=== PATIENT | female | born 1965 | race Hispanic/Latino ===

== ENCOUNTER 2017-09-11 00:06 | Emergency (ER) | payer OTHER ==
[~2017-09-11 00:06] MED LIST: ASPI-1197 PO; INSU10VI4 SQ; LOSA25TA21 PO; MIRA25TA PO; PANT40TA25 PO
[2017-09-11 01:00] LABS: BASOPHILS % (AUTO) 0.8 % (0.0-5.0); EOSINOPHILS % (AUTO) 3.2 % (0.0-8.0); HEMATOCRIT 33.7 % (36-48); LYMPHOCYTES % (AUTO) 40.2 % (21.0-51.0); MEAN CORPUSCULAR HEMOGLOBIN 29.1 pg (27.0-33.0); MEAN CORPUSCULAR HGB CONC 33.8 g/dL (32.0-36.0); MONOCYTES % (AUTO) 8.8 % (3.0-13.0); NUCLEATED RED BLOOD CELLS 0.1 % (0.0-0.19); PLATELET COUNT (AUTO) 95 K/uL (130-400); RED BLOOD CELL COUNT(AUTO) 3.92 MIL/uL (4.00-5.50); RED CELL DISTRIBUTION WIDTH 15.1 % (11.0-15.5); WHITE BLOOD COUNT (AUTO) 3.7 K/uL (4.8-10.8)
[2017-09-11 01:11] LABS: CREATININE 0.7 mg/dL (0.5-1.5); POTASSIUM 3.7 mmol/L (3.5-5.1)
[2017-09-11 01:16] LABS: ALBUMIN 2.8 g/dL (3.5-5.0); BILIRUBIN,TOTAL 0.4 mg/dL (0.2-1.0); TOTAL PROTEIN, SERUM 6.5 g/dL (6.0-8.3)
[2017-09-11] MEDS ORDERED: ONDANSETRON HCL 4 MG/2 ML VIAL ONE (01:26)
[2017-09-11] MEDS ORDERED: SODIUM CHLORIDE 0.9% 1000ML 1,000 ML IV ONE (01:26)
[2017-09-11] MEDS ORDERED: MORPHINE SULFATE 8 MG/ML VIAL ONE ×2 (01:27→03:36)
[2017-09-11] MEDS ORDERED: INSULIN HUMULIN R 100 UNIT/ML 3ML ONE (01:28)
[2017-09-11 02:09] LABS: APPEARANCE,URINE Clear (CLEAR); BILIRUBIN,URINE Negative (NEGATIVE); COLOR,URINE Yellow (YELLOW); GLUCOSE, URINE (UA) >=1000 mg/dL (NEGATIVE); KETONES,URINE Negative (NEGATIVE); LEUKOCYTE ESTERASE ,URINE Negative (NEGATIVE); NITRATE,URINE Negative (NEGATIVE); OCCULT BLOOD,URINE Negative (NEGATIVE); PH,URINE 6.5 (5.0-8.0); PROTEIN,URINE Negative (NEGATIVE)
[2017-09-11] MEDS ORDERED: IOPAMIDOL-370 75 ML VIAL IV ONE (02:09)
[2017-09-11 02:39] LABS: BACTERIA,URINE Rare /HPF (None Seen); SQUAMOUS EPITHELIAL CELL,UR 0-2 /LPF (0-2); WBC,URINE 0-1 /HPF (0-1)
== END 2017-09-11 04:29 | disposition home or self-care (01) ==
LOC: EDH 00:06
DX: K43.9 Ventral hernia without obstruction or gangrene (principal); K74.69 Other cirrhosis of liver; E11.9 Type 2 diabetes mellitus without complications; F32.9 Major depressive disorder, single episode, unspecified; R01.1 Cardiac murmur, unspecified; Z98.51 Tubal ligation status; Z90.49 Acquired absence of other specified parts of digestive tract; Z72.0 Tobacco use
CPT/HCPCS: 36415; 74177; 80053; 81001; 82550; 82948; 83690; 84484; 85025; 93005; 96361; 96374; 96375; 96376; 99285; J1815; J2270 ×2; J2405; J7030; Q9967

== ENCOUNTER 2017-09-25 15:37 | Emergency (ER) | payer OTHER ==
[2017-09-25 16:45] LABS: EOSINOPHILS % (AUTO) 3.3 % (0.0-8.0); HEMATOCRIT 35.5 % (36-48); LYMPHOCYTES % (AUTO) 33.3 % (21.0-51.0); MEAN CORPUSCULAR HEMOGLOBIN 28.6 pg (27.0-33.0); MEAN CORPUSCULAR HGB CONC 33.6 g/dL (32.0-36.0); MEAN CORPUSCULAR VOLUME 85.2 fL (79-99); MONOCYTES % (AUTO) 6.9 % (3.0-13.0); NEUTROPHILS % (AUTO) 55.5 % (40.0-77.0); PLATELET COUNT (AUTO) 99 K/uL (130-400); RED BLOOD CELL COUNT(AUTO) 4.16 MIL/uL (4.00-5.50); RED CELL DISTRIBUTION WIDTH 14.4 % (11.0-15.5); WHITE BLOOD COUNT (AUTO) 4.2 K/uL (4.8-10.8)
[2017-09-25] MEDS ORDERED: KETOROLAC TROMETHAMINE 30MG/ML ONE (16:46)
[2017-09-25] MEDS ORDERED: ONDANSETRON HCL 4 MG/2 ML VIAL ONE (16:46)
[2017-09-25 17:02] LABS: CREATININE 0.7 mg/dL (0.5-1.5)
[2017-09-25 17:06] LABS: ALBUMIN 2.8 g/dL (3.5-5.0); BILIRUBIN,TOTAL 0.6 mg/dL (0.2-1.0); TOTAL PROTEIN, SERUM 6.9 g/dL (6.0-8.3)
[2017-09-25 17:53] LABS: APPEARANCE,URINE Clear (CLEAR); BILIRUBIN,URINE Negative (NEGATIVE); COLOR,URINE Yellow (YELLOW); GLUCOSE, URINE (UA) >=1000 mg/dL (NEGATIVE); KETONES,URINE Negative (NEGATIVE); LEUKOCYTE ESTERASE ,URINE Negative (NEGATIVE); NITRATE,URINE Negative (NEGATIVE); OCCULT BLOOD,URINE Negative (NEGATIVE); PROTEIN,URINE Negative (NEGATIVE)
[2017-09-25 18:41] LABS: BACTERIA,URINE Rare /HPF (None Seen); RBC,URINE 0-1 /HPF (0-1); SQUAMOUS EPITHELIAL CELL,UR Rare /LPF (0-2); WBC,URINE 0-1 /HPF (0-1)
[2017-09-25] MEDS ORDERED: MORPHINE SULFATE 4 MG/1ML SYG ONE (20:19)
[2017-09-25] MEDS ORDERED: INSULIN HUMULIN R 100 UNIT/ML 3ML ONE (21:08)
== END 2017-09-25 21:28 | disposition home or self-care (01) ==
LOC: EDH 15:37
DX: G44.209 Tension-type headache, unspecified, not intractable (principal); K80.50 Calculus of bile duct without cholangitis or cholecystitis without obstruction; M54.12 Radiculopathy, cervical region; E11.9 Type 2 diabetes mellitus without complications; R01.1 Cardiac murmur, unspecified; Z98.51 Tubal ligation status; Z90.49 Acquired absence of other specified parts of digestive tract
CPT/HCPCS: 36415; 70450; 71045; 80053; 81001; 82948; 83690; 84484; 85025; 93005; 96374; 96375; 99285; J1815; J1885; J2270; J2405

== ENCOUNTER 2018-07-04 22:03 | Inpatient (IN) | payer OTHER ==
[~2018-07-04] VITALS: Ht 167.6 cm; Wt 127.5 kg
[~2018-07-04 22:03] MED LIST changes: +INSU100V33 SQ; -INSU10VI4 SQ; +LOSA25TA16 PO; -LOSA25TA21 PO
[2018-07-04 23:14] LABS: BASOPHILS % (AUTO) 1.2 % (0.0-5.0); EOSINOPHILS % (AUTO) 3.1 % (0.0-8.0); HEMATOCRIT 34.9 % (36-48); LYMPHOCYTES % (AUTO) 28.7 % (21.0-51.0); MEAN CORPUSCULAR HEMOGLOBIN 28.9 pg (27.0-33.0); MEAN CORPUSCULAR HGB CONC 33.4 g/dL (32.0-36.0); MEAN CORPUSCULAR VOLUME 86.5 fL (79-99); MONOCYTES % (AUTO) 8.5 % (3.0-13.0); NEUTROPHILS % (AUTO) 58.5 % (40.0-77.0); PLATELET COUNT (AUTO) 77 K/uL (130-400); RED BLOOD CELL COUNT(AUTO) 4.04 MIL/uL (4.00-5.50); RED CELL DISTRIBUTION WIDTH 15.2 % (11.0-15.5); WHITE BLOOD COUNT (AUTO) 4.4 K/uL (4.8-10.8)
[2018-07-04] MEDS ORDERED: KETOROLAC TROMETHAMINE 30MG/ML ONE (23:17)
[2018-07-04 23:24] LABS: INR 1.12 (0.85-1.15); PARTIAL THROMBOPLASTIN TIME 29.2 SEC (26.3-35.5); PROTHROMBIN TIME 11.7 SEC (9.6-11.6)
[2018-07-04 23:28] LABS: CREATININE 0.7 mg/dL (0.5-1.5); POTASSIUM 3.9 mmol/L (3.5-5.1)
[2018-07-04 23:36] LABS: APPEARANCE,URINE Clear (CLEAR); BILIRUBIN,URINE Negative (NEGATIVE); COLOR,URINE Yellow (YELLOW); GLUCOSE, URINE (UA) TRACE mg/dL (NEGATIVE); KETONES,URINE Negative (NEGATIVE); LEUKOCYTE ESTERASE ,URINE Small (NEGATIVE); NITRATE,URINE Negative (NEGATIVE); OCCULT BLOOD,URINE Negative (NEGATIVE); PROTEIN,URINE Negative (NEGATIVE)
[2018-07-04 23:37] LABS: ALBUMIN 2.6 g/dL (3.5-5.0); BILIRUBIN,TOTAL 0.6 mg/dL (0.2-1.0); TOTAL PROTEIN, SERUM 7.1 g/dL (6.0-8.3)
[2018-07-04 23:38] LABS: AMYLASE 42 U/L (25-115)
[2018-07-04 23:43] LABS: AMPHET/METH SCREEN,URINE NEGATIVE (NEGATIVE); BARBITURATE SCREEN, URINE NEGATIVE (NEGATIVE); BENZODIAZEPINES SCREEN,URINE NEGATIVE (NEGATIVE); CANNABINOID SCREEN,URINE NEGATIVE (NEGATIVE); COCAINE SCREEN,URINE NEGATIVE (NEGATIVE); OPIATE SCREEN,URINE NEGATIVE (NEGATIVE); PHENCYCLIDINE SCREEN,URINE NEGATIVE (NEGATIVE)
[2018-07-04 23:46] LABS: BACTERIA,URINE Few /HPF (None Seen); MUCUS,URINE Rare LPF (None Seen); RBC,URINE 0-1 /HPF (0-1)
[2018-07-04 23:57] LABS: CREATINE KINASE, TOTAL 72 U/L (21-232)
[2018-07-05] MEDS ORDERED: MORPHINE SULFATE 4 MG/1ML SYG ONE ×5 (00:55→16:47)
[2018-07-05] MEDS ORDERED: ONDANSETRON HCL MDV 20ML 2 MG/ML VIAL ONE ×4 (00:55→16:47)
[2018-07-05] MEDS ORDERED: LEVOFLOXACIN 500 MG/D5W 100 ML 100 ML ONE (00:55)
[2018-07-05] MEDS ORDERED: CEFTRIAXONE SODIUM 1 GM IV SCH (01:15)
[2018-07-05] MEDS ORDERED: ONDANSETRON HCL 4 MG/2 ML VIAL IV PRN (01:15)
[2018-07-05] MEDS ORDERED: ACETAMINOPHEN 325 MG TAB PO PRN (01:15)
[2018-07-05] MEDS: CEFTRIAXONE SODIUM 1 GM IVP SCH (01:30)
[2018-07-05] MEDS ORDERED: CEFTRIAXONE SODIUM 1 GM ONE (04:06)
[2018-07-05] MEDS ORDERED: SODIUM CHLORIDE 0.9% 1000ML 1,000 ML IV ONE ×2 (04:06→14:46)
[2018-07-05] MEDS ORDERED: ENOXAPARIN SODIUM 30 MG/0.3 ML SQ ONE (08:16)
[2018-07-05] MEDS: ENOXAPARIN SODIUM 30 MG/0.3 ML SQ SCH ×2 (09:00→20:01)
[2018-07-05] MEDS: MIRABEGRON 25 MG PO SCH (09:00)
[2018-07-05 12:00] VITALS: BP 117/69
[2018-07-05] MEDS ORDERED: ALPR1TAB7 PO (12:11)
[2018-07-05] MEDS ORDERED: ECOTRIN PO (12:11)
[2018-07-05] MEDS ORDERED: LOSA100T20 PO (12:11)
[2018-07-05] MEDS ORDERED: METF-445 PO (12:11)
[2018-07-05] MEDS ORDERED: TRAM50TA4 PO (12:11)
[2018-07-05] MEDS ORDERED: ATOR10 PO (12:11)
[2018-07-05] MEDS ORDERED: INSU100I3 SQ (12:15)
[2018-07-05] MEDS ORDERED: INSU100V12 SQ ×2 (12:15)
[2018-07-05] MEDS ORDERED: PANT40TA25 PO (12:15)
[2018-07-05] MEDS ORDERED: KETOROLAC TROMETHAMINE 15MG/ML ONE (14:46)
[2018-07-05 19:00] VITALS: BP 126/73
[2018-07-05 19:02] VITALS: BP 116/67
[2018-07-05] MEDS: PANTOPRAZOLE SODIUM 40 MG TABLET.DR PO SCH (20:12)
[2018-07-05] MEDS: METRONIDAZOLE 500MG/100ML BAG 100 ML IV SCH (20:12)
[2018-07-05] MEDS: LOSARTAN 50 MG TABLET PO SCH (20:12)
[2018-07-05] MEDS: SODIUM CHLORIDE 0.9% 1000ML 1,000 ML IV SCH ×4 (20:14→21:16)
[2018-07-05] MEDS: KETOROLAC TROMETHAMINE 15MG/ML IV PRN (20:22)
[2018-07-05] MEDS ORDERED: LEVOFLOXACIN 500 MG/D5W 100 ML 100 ML IV SCH (22:00)
[2018-07-05] MEDS: MORPHINE SULFATE 4 MG/1ML SYG IV PRN (23:10)
[2018-07-06] VITALS (7 sets, daily range): BP systolic 110–149; BP diastolic 62–89
[2018-07-06] MEDS: CEFTRIAXONE SODIUM 1 GM IVP SCH (01:18)
[2018-07-06] MEDS: MORPHINE SULFATE 4 MG/1ML SYG IV PRN ×2 (02:38→08:29)
[2018-07-06] MEDS: METRONIDAZOLE 500MG/100ML BAG 100 ML IV SCH (04:07)
[2018-07-06] MEDS: SODIUM CHLORIDE 0.9% 1000ML 1,000 ML IV SCH ×2 (04:08→10:25)
[2018-07-06] MEDS: KETOROLAC TROMETHAMINE 15MG/ML IV PRN ×3 (04:08→20:54)
[2018-07-06 05:02] LABS: BASOPHILS % (AUTO) 0.4 % (0.0-5.0); EOSINOPHILS % (AUTO) 2.9 % (0.0-8.0); HEMATOCRIT 33.6 % (36-48); LYMPHOCYTES % (AUTO) 25.6 % (21.0-51.0); MEAN CORPUSCULAR HEMOGLOBIN 28.1 pg (27.0-33.0); MEAN CORPUSCULAR HGB CONC 32.3 g/dL (32.0-36.0); MEAN CORPUSCULAR VOLUME 86.9 fL (79-99); MONOCYTES % (AUTO) 8.6 % (3.0-13.0); NEUTROPHILS % (AUTO) 62.5 % (40.0-77.0); NUCLEATED RED BLOOD CELLS 0.1 % (0.0-0.19); PLATELET COUNT (AUTO) 68 K/uL (130-400); RED BLOOD CELL COUNT(AUTO) 3.87 MIL/uL (4.00-5.50); WHITE BLOOD COUNT (AUTO) 2.7 K/uL (4.8-10.8)
[2018-07-06 05:09] LABS: CREATININE 0.6 mg/dL (0.5-1.5); POTASSIUM 4.2 mmol/L (3.5-5.1)
[2018-07-06 05:27] LABS: BAND NEUTROPHILS % (MANUAL) 1 % (0-2); EOSINOPHILS % (MANUAL) 1 % (1-6); LYMPHOCYTES % (MANUAL) 33 % (22-44); MAN.DIFF COMMENT-IMPRESSION MANUAL DIFFERENTIAL; MONOCYTES % (MANUAL) 5 % (2-9); SEGMENTED NEUTROPHILS % 60 % (40-70)
[2018-07-06] MEDS: MIRABEGRON 25 MG PO SCH (08:10)
[2018-07-06] MEDS: ENOXAPARIN SODIUM 30 MG/0.3 ML SQ SCH (08:21)
[2018-07-06] MEDS: METRONIDAZOLE 500 MG TABLET PO SCH ×2 (11:35→18:01)
[2018-07-06] MEDS: LEVOFLOXACIN 500 MG TABLET PO SCH (11:35)
[2018-07-06] MEDS: LOSARTAN 50 MG TABLET PO SCH (20:53)
[2018-07-06] MEDS: PANTOPRAZOLE SODIUM 40 MG TABLET.DR PO SCH (20:53)
[2018-07-07] MEDS: CEFTRIAXONE SODIUM 1 GM IVP SCH (01:28)
[2018-07-07] MEDS: METRONIDAZOLE 500 MG TABLET PO SCH ×2 (03:17→11:15)
[2018-07-07 03:20] VITALS: BP 117/60
[2018-07-07] MEDS: SODIUM CHLORIDE 0.9% 1000ML 1,000 ML IV SCH (03:22)
[2018-07-07 07:00] VITALS: BP 146/84
[2018-07-07] MEDS ORDERED: METR500T4 PO (07:31)
[2018-07-07] MEDS ORDERED: LEVO500T2 PO (07:31)
[2018-07-07 11:00] VITALS: BP 154/100
[2018-07-07] MEDS: LEVOFLOXACIN 500 MG TABLET PO SCH (11:14)
[2018-07-07] MEDS: ENOXAPARIN SODIUM 30 MG/0.3 ML SQ SCH (11:26)
[2018-07-07] MEDS: KETOROLAC TROMETHAMINE 15MG/ML IV PRN (11:30)
== END 2018-07-07 15:38 | disposition home or self-care (01) | DRG 394 ==
LOC: EDH 22:03 → EDHIP 22:04 → OBSVTOIN 22:04 → 3CH 07-05 18:44
PROVIDERS: ADMIT Internal Medicine; ATTEND Internal Medicine
DX: K43.6 Other and unspecified ventral hernia with obstruction, without gangrene (principal); N39.0 Urinary tract infection, site not specified; Z68.42 Body mass index [BMI] 45.0-49.9, adult; K57.90 Diverticulosis of intestine, part unspecified, without perforation or abscess without bleeding; E66.01 Morbid (severe) obesity due to excess calories; D69.59 Other secondary thrombocytopenia; K74.60 Unspecified cirrhosis of liver; E11.9 Type 2 diabetes mellitus without complications; G89.29 Other chronic pain; I10 Essential (primary) hypertension; K21.9 Gastro-esophageal reflux disease without esophagitis; K44.9 Diaphragmatic hernia without obstruction or gangrene; R16.1 Splenomegaly, not elsewhere classified; K76.0 Fatty (change of) liver, not elsewhere classified; N20.0 Calculus of kidney; F32.9 Major depressive disorder, single episode, unspecified; Z90.721 Acquired absence of ovaries, unilateral; Z79.4 Long term (current) use of insulin; Z83.3 Family history of diabetes mellitus; Z82.5 Family history of asthma and other chronic lower respiratory diseases; Z82.49 Family history of ischemic heart disease and other diseases of the circulatory system; Z82.3 Family history of stroke; Z82.0 Family history of epilepsy and other diseases of the nervous system
CPT/HCPCS: 36415; 71045; 74176; 80048; 80053; 80305; 81001; 82150; 82550; 82948; 83690; 84484; 85025; 85610; 85730; 87088; 93005; A4218; J0696; J1650; J1885; J1956; J2270; J2405; J3490; J7030

== ENCOUNTER 2018-08-18 23:40 | Emergency (ER) | payer OTHER ==
[~2018-08-18 23:40] MED LIST changes: +ALPR1TAB7 PO; -ASPI-1197 PO; +ATOR10 PO; +ECOTRIN PO; +INSU100I3 SQ; +INSU100V12 SQ; -INSU100V33 SQ; +LEVO500T2 PO; +LOSA100T58 PO; -LOSA25TA16 PO; +METF-445 PO; +METR-172 PO; -MIRA25TA PO; +TRAM50TA4 PO
[2018-08-18] MEDS ORDERED: ONDANSETRON HCL 4 MG/2 ML VIAL ONE (23:59)
[2018-08-18] MEDS ORDERED: LIDOCAINE HCL 2% VISCOUS 15 ML UDCUP ONE (23:59)
[2018-08-18] MEDS ORDERED: MAG HYDROX/AL HYDROX/SIMETH ES 30 ML SUSP UDCUP ONE (23:59)
[2018-08-19] MEDS ORDERED: MORPHINE SULFATE 8 MG/ML VIAL ONE
[2018-08-19] MEDS ORDERED: SODIUM CHLORIDE 0.9% 1000ML 1,000 ML IV ONE
[2018-08-19 00:03] LABS: APPEARANCE,URINE Clear (CLEAR); BILIRUBIN,URINE Negative (NEGATIVE); COLOR,URINE Yellow (YELLOW); GLUCOSE, URINE (UA) 500 mg/dL (NEGATIVE); KETONES,URINE Negative (NEGATIVE); LEUKOCYTE ESTERASE ,URINE Small (NEGATIVE); NITRATE,URINE Negative (NEGATIVE); OCCULT BLOOD,URINE Negative (NEGATIVE); PROTEIN,URINE Negative (NEGATIVE)
[2018-08-19 00:16] LABS: BACTERIA,URINE None Seen /HPF (None Seen); RBC,URINE None Seen /HPF (0-1); SQUAMOUS EPITHELIAL CELL,UR Few /HPF (0-2); YEAST,URINE BUDDING None Seen /HPF (None Seen)
[2018-08-19 00:20] LABS: BASOPHILS % (AUTO) 0.2 % (0.0-5.0); EOSINOPHILS % (AUTO) 3.1 % (0.0-8.0); HEMATOCRIT 34.9 % (36-48); LYMPHOCYTES % (AUTO) 30.1 % (21.0-51.0); MEAN CORPUSCULAR HEMOGLOBIN 28.3 pg (27.0-33.0); MEAN CORPUSCULAR HGB CONC 33.2 g/dL (32.0-36.0); MEAN CORPUSCULAR VOLUME 85.2 fL (79-99); MONOCYTES % (AUTO) 8.4 % (3.0-13.0); NEUTROPHILS % (AUTO) 58.2 % (40.0-77.0); PLATELET COUNT (AUTO) 83 K/uL (130-400); RED CELL DISTRIBUTION WIDTH 15.2 % (11.0-15.5); WHITE BLOOD COUNT (AUTO) 3.2 K/uL (4.8-10.8)
[2018-08-19 00:26] LABS: CREATININE 0.6 mg/dL (0.5-1.5); POTASSIUM 4.2 mmol/L (3.5-5.1)
[2018-08-19 00:30] LABS: INR 1.09 (0.85-1.15); PARTIAL THROMBOPLASTIN TIME 29.2 SEC (26.3-35.5); PROTHROMBIN TIME 11.4 SEC (9.6-11.6)
[2018-08-19 00:31] LABS: ALBUMIN 2.6 g/dL (3.5-5.0); BILIRUBIN,TOTAL 0.5 mg/dL (0.2-1.0); TOTAL PROTEIN, SERUM 7.2 g/dL (6.0-8.3)
== END 2018-08-19 02:02 | disposition home or self-care (01) ==
LOC: EDH 23:40
DX: K74.69 Other cirrhosis of liver (principal); E11.9 Type 2 diabetes mellitus without complications; F32.9 Major depressive disorder, single episode, unspecified; Z98.51 Tubal ligation status; Z90.49 Acquired absence of other specified parts of digestive tract
CPT/HCPCS: 36415; 74177; 80053; 81001; 82140; 82150; 83690; 85025; 85610; 85730; 93005; 96361; 96374; 96375; 99284; J2270; J2405; J7030

== ENCOUNTER 2018-11-02 13:36 | Emergency (ER) | payer OTHER ==
[~2018-11-02 13:36] MED LIST changes: -LEVO500T2 PO; -METR-172 PO; +RIFA550T PO
[2018-11-02 14:12] LABS: APPEARANCE,URINE Clear (CLEAR); BILIRUBIN,URINE Negative (NEGATIVE); COLOR,URINE Yellow (YELLOW); GLUCOSE, URINE (UA) 500 mg/dL (NEGATIVE); KETONES,URINE Negative (NEGATIVE); LEUKOCYTE ESTERASE ,URINE Negative (NEGATIVE); NITRATE,URINE Negative (NEGATIVE); OCCULT BLOOD,URINE Negative (NEGATIVE); PROTEIN,URINE Negative (NEGATIVE)
[2018-11-02 14:18] LABS: BACTERIA,URINE Rare /HPF (None Seen); RBC,URINE 0-1 /HPF (0-1); SQUAMOUS EPITHELIAL CELL,UR Rare /HPF (0-2); WBC,URINE 0-1 /HPF (0-1)
[2018-11-02 14:37] LABS: BASOPHILS % (AUTO) 0.8 % (0.0-5.0); EOSINOPHILS % (AUTO) 2.4 % (0.0-8.0); LYMPHOCYTES % (AUTO) 31.8 % (21.0-51.0); MEAN CORPUSCULAR HEMOGLOBIN 28.5 pg (27.0-33.0); MEAN CORPUSCULAR HGB CONC 33.4 g/dL (32.0-36.0); MEAN CORPUSCULAR VOLUME 85.3 fL (79-99); MONOCYTES % (AUTO) 8.3 % (3.0-13.0); NEUTROPHILS % (AUTO) 56.7 % (40.0-77.0); PLATELET COUNT (AUTO) 69 K/uL (130-400); RED BLOOD CELL COUNT(AUTO) 3.98 MIL/uL (4.00-5.50); RED CELL DISTRIBUTION WIDTH 15.4 % (11.0-15.5); WHITE BLOOD COUNT (AUTO) 2.8 K/uL (4.8-10.8)
[2018-11-02] MEDS ORDERED: ONDANSETRON HCL 4 MG/2 ML VIAL ONE (14:41)
[2018-11-02 14:47] LABS: CREATININE 0.7 mg/dL (0.5-1.5); POTASSIUM 4.1 mmol/L (3.5-5.1)
[2018-11-02 14:53] LABS: ALBUMIN 2.5 g/dL (3.5-5.0); BILIRUBIN,TOTAL 0.5 mg/dL (0.2-1.0); TOTAL PROTEIN, SERUM 6.8 g/dL (6.0-8.3)
[2018-11-02] MEDS ORDERED: MORPHINE SULFATE 2 MG/ML 1ML SYG ONE (15:18)
[2018-11-02 15:33] LABS: BAND NEUTROPHILS % (MANUAL) 1 % (0-2); LYMPHOCYTES % (MANUAL) 38 % (22-44); MONOCYTES % (MANUAL) 5 % (2-9); SEGMENTED NEUTROPHILS % 56 % (40-70)
[2018-11-02 15:34] LABS: MAN.DIFF COMMENT-IMPRESSION MANUAL DIFFERENTIAL
[2018-11-02 15:37] LABS: PLATELET MORPHOLOGY COMMENT LARGE PLTS PRESENT
[2018-11-02] MEDS ORDERED: LACTULOSE 20 GM/30 ML UDCUP ONE (16:42)
[2018-11-02] MEDS ORDERED: DiphenhydrAMINE HCL 50 MG/ML VIAL ONE (16:42)
[2018-11-02] MEDS ORDERED: PROCHLORPERAZINE EDISYLATE 10 MG/2 ML VIAL ONE (16:42)
== END 2018-11-02 17:02 | disposition home or self-care (01) ==
LOC: EDH 13:36
DX: K72.90 Hepatic failure, unspecified without coma (principal); K74.60 Unspecified cirrhosis of liver; F32.9 Major depressive disorder, single episode, unspecified; E11.9 Type 2 diabetes mellitus without complications; Z90.49 Acquired absence of other specified parts of digestive tract; Z72.0 Tobacco use
CPT/HCPCS: 36415; 80053; 81001; 82140; 85025; 96374; 96375; 99284; J0780; J1200; J2405

== ENCOUNTER 2019-02-19 21:57 | Emergency (ER) | payer OTHER ==
[~2019-02-19 21:57] MED LIST changes: -ECOTRIN PO; -INSU100I3 SQ; +LACT10SO9 PO; -RIFA550T PO
[2019-02-19 23:08] LABS: APPEARANCE,URINE Clear (CLEAR); BILIRUBIN,URINE Negative (NEGATIVE); COLOR,URINE Yellow (YELLOW); GLUCOSE, URINE (UA) >=1000 mg/dL (NEGATIVE); KETONES,URINE Negative (NEGATIVE); LEUKOCYTE ESTERASE ,URINE Moderate (NEGATIVE); NITRATE,URINE Negative (NEGATIVE); OCCULT BLOOD,URINE Negative (NEGATIVE); PROTEIN,URINE Negative (NEGATIVE)
[2019-02-19 23:12] LABS: EOSINOPHILS % (AUTO) 2.9 % (0.0-8.0); HEMATOCRIT 36.8 % (36-48); LYMPHOCYTES % (AUTO) 34.5 % (21.0-51.0); MEAN CORPUSCULAR HGB CONC 33.3 g/dL (32.0-36.0); MEAN CORPUSCULAR VOLUME 87.3 fL (79-99); MONOCYTES % (AUTO) 7.9 % (3.0-13.0); NEUTROPHILS % (AUTO) 54.2 % (40.0-77.0); PLATELET COUNT (AUTO) 89 K/uL (130-400); RED BLOOD CELL COUNT(AUTO) 4.21 MIL/uL (4.00-5.50); RED CELL DISTRIBUTION WIDTH 15.1 % (11.0-15.5); WHITE BLOOD COUNT (AUTO) 3.4 K/uL (4.8-10.8)
[2019-02-19 23:13] LABS: BASOPHILS % (AUTO) 0.5 % (0.0-5.0)
[2019-02-19] MEDS ORDERED: TRAMADOL HCL 50 MG TABLET ONE (23:22)
[2019-02-19] MEDS ORDERED: ONDANSETRON HCL 4 MG/2 ML VIAL ONE (23:22)
[2019-02-19 23:24] LABS: BACTERIA,URINE Few /HPF (None Seen); SQUAMOUS EPITHELIAL CELL,UR 0-2 /HPF (0-2)
[2019-02-19 23:26] LABS: CREATININE 0.8 mg/dL (0.5-1.5)
[2019-02-19 23:29] LABS: ALBUMIN 2.6 g/dL (3.5-5.0); BILIRUBIN,TOTAL 0.5 mg/dL (0.2-1.0); TOTAL PROTEIN, SERUM 7.2 g/dL (6.0-8.3)
[2019-02-19 23:32] LABS: INR 1.13 (0.85-1.15); PARTIAL THROMBOPLASTIN TIME 30.3 SEC (26.3-35.5); PROTHROMBIN TIME 11.8 SEC (9.6-11.6)
[2019-02-20] MEDS ORDERED: LACTULOSE 20 GM/30 ML UDCUP ONE (00:04)
[2019-02-20] MEDS ORDERED: MORPHINE SULFATE 4 MG/1ML SYG ONE (00:19)
== END 2019-02-20 02:42 | disposition home or self-care (01) ==
LOC: EDH 21:57
DX: K72.90 Hepatic failure, unspecified without coma (principal); K74.60 Unspecified cirrhosis of liver; R60.0 Localized edema; E11.9 Type 2 diabetes mellitus without complications; F32.9 Major depressive disorder, single episode, unspecified; Z72.0 Tobacco use; Z90.49 Acquired absence of other specified parts of digestive tract; Z90.721 Acquired absence of ovaries, unilateral
CPT/HCPCS: 36415; 76700; 80053; 81001; 82140; 83690; 84484; 85025; 85610; 85730; 87077; 87088; 87186; 93005; 96374; 96375; 99285; J2270; J2405

== ENCOUNTER 2019-04-19 17:14 | Emergency (ER) | payer OTHER ==
[2019-04-19 17:46] LABS: BASOPHILS % (AUTO) 0.8 % (0.0-5.0); HEMATOCRIT 38.8 % (36-48); LYMPHOCYTES % (AUTO) 24.2 % (21.0-51.0); MEAN CORPUSCULAR HEMOGLOBIN 30.1 pg (27.0-33.0); MEAN CORPUSCULAR HGB CONC 34.1 g/dL (32.0-36.0); MEAN CORPUSCULAR VOLUME 88.2 fL (79-99); MONOCYTES % (AUTO) 8.5 % (3.0-13.0); NEUTROPHILS % (AUTO) 64.5 % (40.0-77.0); PLATELET COUNT (AUTO) 80 K/uL (130-400); RED CELL DISTRIBUTION WIDTH 15.4 % (11.0-15.5); WHITE BLOOD COUNT (AUTO) 3.7 K/uL (4.8-10.8)
[2019-04-19 17:57] LABS: CREATININE 0.7 mg/dL (0.5-1.5)
[2019-04-19 18:02] LABS: ALBUMIN 2.9 g/dL (3.5-5.0); TOTAL PROTEIN, SERUM 7.2 g/dL (6.0-8.3)
[2019-04-19] MEDS ORDERED: ONDANSETRON HCL 4 MG/2 ML VIAL ONE (18:21)
[2019-04-19 18:24] LABS: INR 1.09 (0.85-1.15); PARTIAL THROMBOPLASTIN TIME 27.3 SEC (26.3-35.5); PROTHROMBIN TIME 11.4 SEC (9.6-11.6)
[2019-04-19] MEDS ORDERED: MORPHINE SULFATE 4 MG/1ML SYG ONE (18:28)
[2019-04-19 19:02] LABS: APPEARANCE,URINE Clear (CLEAR); BILIRUBIN,URINE Negative (NEGATIVE); COLOR,URINE Dark Yellow (YELLOW); GLUCOSE, URINE (UA) Negative (NEGATIVE); KETONES,URINE Negative (NEGATIVE); LEUKOCYTE ESTERASE ,URINE Small (NEGATIVE); NITRATE,URINE Negative (NEGATIVE); OCCULT BLOOD,URINE Negative (NEGATIVE); PROTEIN,URINE Negative (NEGATIVE)
[2019-04-19 19:15] LABS: BACTERIA,URINE Few /HPF (None Seen); MUCUS,URINE Few LPF (None Seen); RBC,URINE 0-1 /HPF (0-1)
[2019-04-19] MEDS ORDERED: IOHEXOL-350 75 ML VIAL IV ONE (19:43)
== END 2019-04-19 21:42 | disposition home or self-care (01) ==
LOC: EDH 17:14
DX: K74.69 Other cirrhosis of liver (principal); K42.9 Umbilical hernia without obstruction or gangrene; E11.9 Type 2 diabetes mellitus without complications; F32.9 Major depressive disorder, single episode, unspecified; Z90.49 Acquired absence of other specified parts of digestive tract; Z90.721 Acquired absence of ovaries, unilateral
CPT/HCPCS: 36415; 71045; 74177; 76705; 80053; 81001; 82140; 83690; 84484; 85025; 85610; 85730; 87088; 93005; 96374; 96375; 99285; J2270; J2405; Q9967

== ENCOUNTER 2020-02-01 14:12 | Emergency (ER) | payer OTHER ==
[2020-02-01] MEDS ORDERED: KETOROLAC TROMETHAMINE 30MG/ML ONE (17:29)
== END 2020-02-01 17:55 | disposition home or self-care (01) ==
LOC: EDH 14:12
DX: R53.1 Weakness (principal); R51 Headache; K74.60 Unspecified cirrhosis of liver; F32.9 Major depressive disorder, single episode, unspecified; E11.9 Type 2 diabetes mellitus without complications; Z72.0 Tobacco use; Z90.49 Acquired absence of other specified parts of digestive tract
CPT/HCPCS: 36415; 71045; 80053; 81001; 82140; 82550; 83605; 83874; 84145; 84484; 85025; 85610; 85730; 87040 ×2; 87088; 93005; 96372; 99285; J1885